=== PATIENT | female | born 1945 | race African-American/Black ===

== ENCOUNTER → 2017-07-29 | Day surgery (SDC) | payer MEDICARE ==
[~2017-07-29] MED LIST: ACETAMINOPHEN 1000 MG/100 ML 100 ML IV ONE; B6; BUPIVACAINE/EPINEPHRINE 0.25% 50 ML VIAL ONE; ISOSULFAN BLUE 50 MG/5 ML VIAL SQ ONE; KETOROLAC TROMETHAMINE 30 MG/ML (IVP) VIAL ONE; LACTATED RINGER'S 1000 ML INJ 1,000 ML ONE; LIDOCAINE 1.5%/EPINEPHrine 1:200,000 PF SOLN 30 ML AMP ONE; LISI40TA PO; MEPERIDINE HCL 25 MG/ML VIAL ONE; MIDAZOLAM HCL 2 MG/2 ML VIAL ONE; NS 100 ML (PAB BAG) 100 ML IV ONE; OMEGA 3; ONDANSETRON HCL 4 MG/2 ML VIAL IV PUSH ONE; OS-CTAB3 PO; PROPOFOL 500 MG/50 ML BTL IV ONE; REDCAP2 OR; ST J81CH PO; TAB-TAB PO; VANCOMYCIN HCL 1000 MG VIAL ONE; ePHEDrine/NS 25 MG/5 ML SYR IV ONE; oxyCODONE/ACETAMINOPHEN 5 MG/325 MG TAB ONE
--- NOTE | 2017-07-29 17:26 | MP ---
cc: [facility]T [facility] DATE OF SURGERY 07/29/17 PREOPERATIVE DIAGNOSIS Carcinoma of the right breast. POSTOPERATIVE DIAGNOSIS Carcinoma of the right breast. PROCEDURE 1. Needle-localized wide excision right breast cancer 2. Right axillary sentinel lymph node biopsy. SURGEON Jose Armando Matute MD TRAFFIC ADMINISTRATOR Jerri Gonzalez, MS III ANESTHESIA General OPERATIVE FINDING AND PROCEDURE The patient was brought to the operating room after having undergone nuclear injection for identification of a sentinel node in the right axilla as well as needle localization of a non-palpable previously biopsied carcinoma in the right breast. She was then brought to the operating room, placed on the table supine. After satisfactory general anesthesia had been obtained, the right breast and axilla were prepped and draped in the usual sterile fashion. 0.25% Marcaine with epinephrine was used to infiltrate the skin for local anesthesia. The axilla was approached first and a transverse intraaxillary incision was made and carried down sharply through the subcutaneous tissue with the cautery being used for hemostasis. Incision was deepened into the axilla proper by incising the clavipectoral fascia with the cautery. The sentinel node was identified using the navigator probe. It was grasped with an Allis forcep and area around the sentinel node was dissected free using the harmonic scalpel. The node was checked for radioactivity and was found to be highly reactive. It was marked with a silk suture and sent for permanent pathology. Attention was then turned to closure and the subcutaneous tissue was closed with interrupted 3-0 Vicryl sutures. Skin closed with interrupted 4-0 Monocryl subcuticular stitches. The skin of the breast was then anesthetized with 0.25% Marcaine with epinephrine after which a circumareolar incision was made, carried down sharply through the subcutaneous tissue with the cautery being used for hemostasis. Incision was deepened into the breast parenchyma where the guidewire was passed with a hemostat and amputated at the level of the skin. The end of the guidewire was identified and, using the harmonic scalpel, the breast specimen was dissected free completely from within the breast. It was then brought within the wound and sent for specimen mammogram. The mammogram showed the lesion to be in the specimen with a ? about the posterior margin. The margin posteriorly was then grasped with Allis forceps and two pieces of tissue were dissected free using the cautery and sent for permanent pathology labeled cavity shaving posterior margin. Hemostasis was strictly assured after which the subcutaneous tissue and skin were closed with interrupted 4-0 PDS subcuticular stitches. Steri-Strips were placed on both incisions. The patient was then awakened and taken from the operating room in satisfactory condition having tolerated the procedure without problem. Estimated blood loss was less than 10 mL. The instrument, sponge and needle counts were reported as being correct x2 at the end of the procedure. ASSESSMENT ATTENDING PHYSICIAN Very much the MD ARCHANA Francis/ /2:59 PM /5:15 PM
== END | disposition home or self-care (01) ==
LOC: ESDC 06:22
PROVIDERS: ATTEND Surgery
DX: C50.911 Malignant neoplasm of unspecified site of right female breast (principal)
CPT/HCPCS: 00400; 01610; 19125; 38525; 38792; 88307; 88309; J0131; J1885; J2175; J2250; J2405; J3010; J3370; J7120; Q9968

== ENCOUNTER 2018-03-06 11:56 | Emergency (ER) | payer OTHER, MEDICARE ==
[~2018-03-06] VITALS: Ht 167.6 cm; Wt 96.0 kg
[~2018-03-06 11:56] MED LIST changes: -ACETAMINOPHEN 1000 MG/100 ML 100 ML IV ONE; -BUPIVACAINE/EPINEPHRINE 0.25% 50 ML VIAL ONE; -ISOSULFAN BLUE 50 MG/5 ML VIAL SQ ONE; -KETOROLAC TROMETHAMINE 30 MG/ML (IVP) VIAL ONE; -LACTATED RINGER'S 1000 ML INJ 1,000 ML ONE; -LIDOCAINE 1.5%/EPINEPHrine 1:200,000 PF SOLN 30 ML AMP ONE; -MEPERIDINE HCL 25 MG/ML VIAL ONE; -MIDAZOLAM HCL 2 MG/2 ML VIAL ONE; -NS 100 ML (PAB BAG) 100 ML IV ONE; -ONDANSETRON HCL 4 MG/2 ML VIAL IV PUSH ONE; -PROPOFOL 500 MG/50 ML BTL IV ONE; -VANCOMYCIN HCL 1000 MG VIAL ONE; -ePHEDrine/NS 25 MG/5 ML SYR IV ONE; -oxyCODONE/ACETAMINOPHEN 5 MG/325 MG TAB ONE
[2018-03-06 12:15] VITALS: BP 162/79; PULSE 75; RESP 16; TEMP 98.9; O2SAT 99
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
[2018-03-06] MEDS ORDERED: METF500T PO (12:39)
[2018-03-06] MEDS ORDERED: AMLO5TAB2 PO (12:39)
[2018-03-06] MEDS ORDERED: LOSA25TA PO (12:39)
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
[2018-03-06] MEDS ORDERED: BACL10TA PO (13:52)
[2018-03-06] MEDS ORDERED: NAPR500T2 PO (13:52)
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
== END 2018-03-06 15:50 | disposition home or self-care (01) ==
LOC: NEPD 11:56
DX: S16.1XXA Strain of muscle, fascia and tendon at neck level, initial encounter (principal); S39.012A Strain of muscle, fascia and tendon of lower back, initial encounter; E11.9 Type 2 diabetes mellitus without complications; I10 Essential (primary) hypertension; V43.52XA Car driver injured in collision with other type car in traffic accident, initial encounter; Z88.8 Allergy status to other drugs, medicaments and biological substances
CPT/HCPCS: 72100; 72125; 99284